=== PATIENT | female | born 1995 | race Caucasian/White ===

== ENCOUNTER 2019-05-26 18:53 | Emergency (ER) | payer OTHER, SELFPAY ==
[2019-05-26 19:05] VITALS: BP 150/79; PULSE 124; RESP 16; TEMP 37.2; O2SAT 100
--- NOTE | 2019-05-26 19:58 | ED.GENADULT ---
HPI - General Adult General Chief complaint: Upper Respiratory Infection Stated complaint: cough ear pain Time Seen by Provider: 05/26/19 19:58 Source: patient and RN notes reviewed Mode of arrival: ambulatory Limitations: no limitations History of Present Illness HPI narrative: 24-year-old female with complaints of upper respiratory infection symptoms, sore throat, body aches, fatigue, bilateral ear pain, tactile fever, congestion, and cough for 2 days. Tylenol (last at 2100 on 05/25/2019) and NyQuil with little relief. History of Asthma. Dry cough with intermittent productive cough (brown phlegm). Rhinorrhea and nasal congestion. Exacerbating factors consists of smoke exposure. Tactile fevers with intermittent chills and sweats. Sore throat, bilaterally. Hurts to swallow. No drooling, neck or throat swelling. No nausea, vomiting, and abdominal pain. Denies chest pain, dyspnea, coughing up blood, difficulty swallowing, jaw pain, dental pain, facial pain, foreign body sensation, and rash. Remains active. Arline denies being , LMP 1 month ago and has Moment.Usplanon in place. Some parts of this dictation were generated by voice recognition software and may contain typographical and/or grammatical inaccuracies. Related Data Home Medications Medication Instructions Recorded Confirmed albuterol sulfate 05/26/19 05/26/19 ranitidine HCl 05/26/19 venlafaxine 05/26/19 Allergies Allergy/AdvReac Type Severity Reaction Status Date / Time No Known Allergies Allergy Unknown Verified 05/26/19 19:51 Review of Systems Review of Systems: Narrative: CONSTITUTIONAL: Complains of fatigue, tactile fever, chills, sweats. EYES: Denies visual changes, redness, discharge. ENT: Complains of rhinorrhea, congestion, sore throat, bilateral otalgia. CARDIOVASCULAR: Denies chest pain, palpitations, edema. RESPIRATORY: Denies dyspnea, wheezing. Complains of dry cough, intermittent productive cough. GASTROINTESTINAL: Denies abdominal pain, nausea, vomiting, diarrhea. GENITOURINARY: Denies dysuria, hematuria, abnormal discharge. SKIN: Denies rash or itching. MUSCULOSKELETAL: Denies acute back pain, joint pain. Complains of myalgia. NEUROLOGIC: Denies numbness or focal weakness. PSYCHIATRIC: Denies anxiety or depression. All systems reviewed & are unremarkable except as noted in HPI and below. PMFSH Past Medical History Medical History Asthma Depression GERD (gastroesophageal reflux disease) Surgical History Surgical History No significant past surgical history Family History Family History Other Depression Diabetes mellitus Family history of coronary artery disease Social History Social History (Updated 05/26/19 @ 20:08 by SAURABH Cheatham) Smoking status: Never smoker Alcohol intake: current Alcohol use details: Occasionally Substance use: never Living arrangements: alone Occupation/Education: occupation Gender identity (if verbalized by the patient): Female Comments At time of signature, agree with nurse past medical, surgical, social, and family history. There is no relevant family history pertinent to the presenting complaint. Exam Narrative: Exam Narrative: GENERAL: This is a well-nourished, well-developed patient, in no apparent distress. Speaks in full sentences and ambulates with steady gait without dyspnea. HEAD: normocephalic, atraumatic. EYES: PERRL. Sclera clear/white. Vision is grossly intact. EARS: External ears normal, auditory canals clear and without drainage, TMs normal without perforation. Hearing grossly intact. NOSE: External nose normal with no obvious nasal discharge, nares with moderate redness and enlarged turbinates, clear rhinorrhea. THROAT: Mucous membranes moist, posterior pharynx with
[2019-05-26 20:25] VITALS: BP 110/82; PULSE 107; RESP 22
== END 2019-05-26 20:30 | disposition home or self-care (01) ==
PROVIDERS: Emergency Provider Nurse Practitioner Family
DX: B34.9 Viral infection, unspecified (principal); K21.9 Gastro-esophageal reflux disease without esophagitis
CPT/HCPCS: 87081; 87804; 87880; 99213; G0463

== ENCOUNTER 2019-06-03 18:17 | Emergency (ER) | payer OTHER, SELFPAY ==
[2019-06-03 18:24] VITALS: BP 138/88; PULSE 96; RESP 20; TEMP 37; O2SAT 100
--- NOTE | 2019-06-03 18:47 | ED.URI ---
HPI - URI/Sore Throat General Chief Complaint: Upper Respiratory Infection Stated Complaint: cough fever Time Seen by Provider: 06/03/19 18:36 Source: patient and RN notes reviewed Mode of arrival: ambulatory Limitations: no limitations History of Present Illness HPI Narrative: Patient presents today with a 10-day history of cough. She was seen at urgent care on 05/26/2019. At that time she was diagnosed with a viral illness and given prescriptions for prednisone, Claritin, Tessalon Perles. States her cough has significantly improved, but is still persistent. She also reports some persistent fatigue with sweats and chills. Denies shortness of breath. She has been taking the prescribed medications as well as using nebulizer treatments at home with relief. MD elicited complaint: cough Related Data Home Medications Medication Instructions Recorded Confirmed albuterol sulfate 2.5 mg INHALATION Q4H PRN 06/03/19 06/03/19 Allergies Allergy/AdvReac Type Severity Reaction Status Date / Time No Known Allergies Allergy Unknown Verified 06/03/19 18:45 Review of Systems Review of Systems: Narrative: CONSTITUTIONAL: Denies body aches, fever. +Chills, sweats, fatigue EYES: Denies visual changes, redness, or discharge. ENT: Denies rhinorrhea, congestion, sore throat, or otalgia. CARDIOVASCULAR: Denies chest pain, palpitations, or edema. RESPIRATORY: Denies dyspnea.+Cough GASTROINTESTINAL: Denies abdominal pain, nausea, vomiting, or diarrhea. GENITOURINARY: Denies dysuria or hematuria. SKIN: Denies rash, itching, or wounds. MUSCULOSKELETAL: Denies back pain, joint pain, or myalgia. NEUROLOGIC: Denies headache, numbness, tingling, or weakness. PSYCH: Denies depression or anxiety. [facility] Social History Social History (Updated 05/26/19 @ 20:08 by SAURABH Cheatham) Smoking status: Never smoker Alcohol intake: current Substance use: never Gender identity (if verbalized by the patient): Female Comments At time of signature, I have reviewed and agree with nursing past medical, surgical, social and family history unless otherwise noted. Please see nursing chart for further information. There is no relevant family history pertinent to the presenting complaint Exam Narrative: Exam Narrative: GENERAL: Well-appearing, well-nourished, and in no acute distress. HEAD: Normocephalic, atraumatic. EYES: EOMI. No redness or drainage. Conjunctivae normal. ENT: Mucous membranes pink and moist. Nares clear. No rhinorrhea. TMs normal bilaterally. Throat normal. Uvula midline. NECK: Normal AROM. Supple. No lymphadenopathy. CHEST: No respiratory distress. Clear to auscultation. HEART: Regular rate and rhythm. No murmur appreciated. Normal peripheral pulses. EXTREMITIES: Normal range of motion. No edema. SKIN: Warm, dry, no rash. NEURO: No focal deficits. Alert and oriented x3. Gait steady. PSYCH: Normal affect. No signs of depression or anxiety. Course Vital Signs Vital signs: Vital Signs Temperature 98.6 F 06/03/19 18:24 Pulse Rate 96 06/03/19 18:24 Respiratory Rate 20 06/03/19 18:24 Blood Pressure 138/88 06/03/19 18:24 Pulse Oximetry 100 06/03/19 18:24 Temperature 98.6 F 06/03/19 18:24 Pulse Rate 96 06/03/19 18:24 Respiratory Rate 20 06/03/19 18:24 Blood Pressure 138/88 06/03/19 18:24 Pulse Oximetry 100 06/03/19 18:24 Reviewed. Pt has been instructed to follow up with her PCP regarding her elevated blood pressure today. MDM - URI/Sore Throat Differential Diagnosis Differential diagnosis: Likely upper respiratory infection, sinusitis and bronchitis Medical Records Attestation: I reviewed the patient's medical records. Critical Care Time Critical Care Time Critical Care Time: No Discharge Plan Discharge Clinical Impression: Bronchitis Patient Disposition: Home, Self-Care Condition: Stable Instructions: Acute Bronchitis (ED) Additional Instructions: Ple
== END 2019-06-03 18:55 | disposition home or self-care (01) ==
PROVIDERS: Emergency Provider Nurse Practitioner
DX: J40 Bronchitis, not specified as acute or chronic (principal); K21.9 Gastro-esophageal reflux disease without esophagitis; F32.9 Major depressive disorder, single episode, unspecified; J45.909 Unspecified asthma, uncomplicated
CPT/HCPCS: 99213; G0463

== ENCOUNTER 2021-09-20 09:46 | Emergency (ER) | payer OTHER, SELFPAY ==
--- NOTE | 2021-09-20 09:50 | ED.URI ---
HPI - URI/Sore Throat General Chief Complaint: Upper Respiratory Infection Stated Complaint: sore throat Time Seen by Provider: 09/20/21 09:50 Source: patient and RN notes reviewed History of Present Illness HPI Narrative: Patient is a 26-year-old female who presents the urgent care with complaints of sore throat for the last 2 to 3 days. Patient denies any fever, nausea, vomiting or known ill exposure. Patient has not taken anything [id number] for her symptoms. No other acute complaints. No acute distress noted. Patient aware of the plan of care. Some parts of this dictation were generated by voice recognition software and may contain typographical and/or grammatical inaccuracies. Related Data Home Medications Medication Instructions Recorded Confirmed albuterol sulfate 2.5 mg/3 mL 2.5 mg inhalation Q4H PRN sob 06/03/19 06/03/19 (0.083 %) solution for nebulization ranitidine HCl 150 mg tablet 150 mg PO BID 06/03/19 06/03/19 venlafaxine 37.5 mg 37.5 mg PO DAILY 06/03/19 06/03/19 capsule,extended release 24 hr Allergies Allergy/AdvReac Type Severity Reaction Status Date / Time No Known Allergies Allergy Unknown Verified 06/03/19 18:45 Review of Systems Review of Systems: CONSTITUTIONAL: Denies fever, chills, or sweats. EYES: Denies visual changes, redness, or discharge. ENT: Denies rhinorrhea, congestion, otalgia. Reports of sore throat CARDIOVASCULAR: Denies chest pain, palpitations, or edema. RESPIRATORY: Denies cough or dyspnea. GASTROINTESTINAL: Denies abdominal pain, nausea, vomiting, or diarrhea. GENITOURINARY: Denies dysuria or hematuria. SKIN: Denies rash or itching. MUSCULOSKELETAL: Denies back pain, joint pain, or myalgia. NEUROLOGIC: Denies headache, numbness, or weakness. All other systems reviewed are negative, except as documented in HPI. [facility] Past Medical History Medical History (Updated 09/20/21 @ 10:05 by SAURABH Scott) Asthma Depression GERD (gastroesophageal reflux disease) Surgical History Surgical History No significant past surgical history Family History Family History Other Depression Diabetes mellitus Family history of coronary artery disease Social History Social History (Updated 05/26/19 @ 20:08 by SAURABH Cheatham) Smoking status: Never smoker Alcohol intake: current Alcohol use details: Occasionally Substance use: never Gender identity (if verbalized by the patient): Female Comments At the time of my signature, I reviewed and agree with the nursing past medical, surgical, social, and family history. There is no relevant family history pertinent to the patient complaint. Exam Narrative: GENERAL: This is a well-nourished, well-developed patient, in no apparent distress. HEAD: normocephalic, atraumatic. EYES: PERRL. Sclera clear/white. Vision is grossly intact. EARS: External ears normal, auditory canals clear and without drainage, TMs normal without perforation. Hearing grossly intact. NOSE: External nose normal with no obvious nasal discharge, nares without redness, clear rhinorrhea. THROAT: Mucous membranes moist, posterior pharynx clear. Moderate postnasal drainage NECK: Neck supple CARDIOVASCULAR: Regular rate and rhythm without murmurs, gallops, or rubs. RESPIRATORY: Clear to auscultation. Breath sounds equal bilaterally. No wheezes, rales, or rhonchi. SKIN: warm, intact with no suspicious lesions or rash, good texture and turgor. NEURO: awake, alert, and oriented to person, place and time. There were no obvious focal neurologic abnormalities. EXTREMITIES: No clubbing, cyanosis, or edema. Course Course Level of Care: Express Care Visit Vital Signs Vital signs: Vital Signs Temperature 98.4 F 09/20/21 09:52 Pulse Rate 79 09/20/21 09:52 Respiratory Rate 20 09/20/21 09:52 Blood Pressure
[2021-09-20 09:52] VITALS: BP 146/88; PULSE 79; RESP 20; TEMP 36.9; O2SAT 100
== END 2021-09-20 10:08 | disposition home or self-care (01) ==
PROVIDERS: Emergency Provider Nurse Practitioner Family; PCP Nurse Practitioner Family
DX: J02.9 Acute pharyngitis, unspecified (principal); J45.909 Unspecified asthma, uncomplicated; K21.9 Gastro-esophageal reflux disease without esophagitis; F32.A Depression, unspecified
CPT/HCPCS: 87081; 99213; G0463

== ENCOUNTER 2022-11-13 09:18 | Emergency (ER) | payer OTHER, SELFPAY ==
[2022-11-13 09:26] VITALS: BP 138/80; PULSE 71; RESP 20; TEMP 36.7; O2SAT 100
--- NOTE | 2022-11-13 09:39 | ED.ANIMALBIT ---
HPI - Animal Bite General Chief Complaint: Animal Bite Stated Complaint: Dog bite on right hand pointer finger History of Present Illness HPI narrative: right index finger dog bite patient states was her dog and non provoked attach no concerns for rabies no dog bite form completed. Patient is26 weeks with no related problems normal movement and no vaginal discharge. Related Data Home Medications Medication Instructions Recorded Confirmed albuterol sulfate 2.5 mg/3 mL 2.5 mg inhalation Q4H PRN sob 06/03/19 11/02/22 (0.083 %) solution for nebulization albuterol sulfate 90 mcg/actuation 2 puff inhalation Q4H PRN cough, 11/02/22 11/02/22 aerosol inhaler (ProAir HFA) wheezing, and shortness of breath vits no.126-ferrous fum 1 tablet PO DAILY 11/02/22 11/02/22 28 mg iron-folic acid 800 mcg tablet (Classic ) Allergies Allergy/AdvReac Type Severity Reaction Status Date / Time No Known Allergies Allergy Unknown Verified 11/02/22 13:22 Review of Systems Review of Systems: CONSTITUTIONAL: Denies fever, chills, or sweats. EYES: Denies visual changes, redness, or discharge. ENT: Denies rhinorrhea, congestion, sore throat, or otalgia. CARDIOVASCULAR: Denies chest pain, palpitations, or edema. RESPIRATORY: Denies cough or dyspnea. GASTROINTESTINAL: Denies abdominal pain, nausea, vomiting, or diarrhea. GENITOURINARY: Denies dysuria or hematuria. SKIN: Denies rash or itching. MUSCULOSKELETAL: Denies back pain, joint pain, or myalgia. NEUROLOGIC: Denies headache, numbness, or weakness. PSYCHIATRIC: Denies anxiety or depression. [facility] Past Medical History Medical History (Updated 11/13/22 @ 09:44 by SAURABH Myers) Asthma Depression GERD (gastroesophageal reflux disease) Surgical History Surgical History No significant past surgical history Family History Family History Other Depression Diabetes mellitus Family history of coronary artery disease Social History Social History (Updated 05/26/19 @ 20:08 by Tatonya M. Mendoza, JTAC) Smoking status: Never smoker Alcohol intake: current Alcohol use details: Occasionally Substance use: never Living arrangements: alone Occupation/Education: occupation Gender identity (if verbalized by the patient): Female Spiritual care concerns: No Comments At time of signature, agree with nursing past medical, surgical, social and family history. There is no relevant family history pertinent to the presenting complaint Exam Narrative: GENERAL: Well-appearing, well-nourished, and in no acute distress. HEAD: Normocephalic, atraumatic. EYES: PERRLA and EOMI. ENT: Nares clear, no rhinorrhea or epistaxis. Mucous membranes moist. NECK: Supple. CHEST: Clear to auscultation. No respiratory distress. HEART: Regular rate and rhythm. No murmur heard. Normal peripheral pulses. ABDOMEN: Soft, nontender, nondistended, normal active bowel sounds. EXTREMITIES: Normal range of motion. No edema. SKIN: Warm, dry, no rash. Puncture wound to right index finger slightly swollen and tender to touch no drainage NEURO: No focal deficits. Alert and oriented x3. Natalia Coma Scale Eye Opening: Spontaneous 4 Natalia Coma Scale Motor: Obeys Commands 6 Emerita Coma Scale Verbal: Oriented 5 Natalia Coma Scale Total 15 Course Course Level of Care: Express Care Visit Vital Signs Vital signs: Vital Signs Temperature 36.7 C 11/13/22 09:26 Pulse Rate 71 11/13/22 09:26 Respiratory Rate 20 11/13/22 09:26 Blood Pressure 138/80 11/13/22 09:26 Pulse Oximetry 100 11/13/22 09:26 Oxygen Delivery Room Air 11/13/22 09:26 Temperature 36.7 C 11/13/22 09:26 Pulse Rate 71 11/13/22 09:26 Respiratory Rate 20 11/13/22 09:26 Blood Pressure 138/80 11/13/22 09:26 Pulse Oximetry 100
== END 2022-11-13 09:49 | disposition home or self-care (01) ==
PROVIDERS: Emergency Provider Nurse Practitioner Family; PCP Nurse Practitioner Family
DX: O9A.212 Injury, poisoning and certain other consequences of external causes complicating pregnancy, second trimester (principal); S61.230A Puncture wound without foreign body of right index finger without damage to nail, initial encounter; Z3A.26 26 weeks gestation of pregnancy; W54.0XXA Bitten by dog, initial encounter; J45.909 Unspecified asthma, uncomplicated; K21.9 Gastro-esophageal reflux disease without esophagitis
CPT/HCPCS: 99213; G0463

== ENCOUNTER 2022-11-25 04:51 | Inpatient (IN) | payer OTHER, SELFPAY ==
[2022-11-25] VITALS (202 sets, daily range): BP systolic 88–168; BP diastolic 49–119; PULSE 50–167; RESP 15–20; TEMP 36.1–37.5; O2SAT 96–100; BMI 41.3
[2022-11-25] MEDS: LACTATED RINGERS 1,000 ML 125 ML IV CONT ×3 (05:42→15:49)
--- NOTE | 2022-11-25 05:55 | LDADM ---
This patient, Arline Rodriguez, was admitted to Labor/Delivery/Recovery 102 on 11/25/22 at 04:51. Plans for labor, pain management and were discussed with patient. Patient/family oriented to hospital policies and general routines including ID bracelet, bed and alarms, visiting hours, pain management, procedures, bathroom and other care routines, personal items, smoking policy, room service/diet and guest tray routines, security routines, and visiting hours. Patient/Family are encouraged to report perceived risks to care and to ask questions if they do not understand what they are told or what they should do. See OBIX for further documentation.
[2022-11-25 06:07] LABS: Basophils Percent Auto 0.2 % (0.2-1.2); Hematocrit 38.2 % (37.0-47.0); Hemoglobin 13.2 g/dL (12.0-15.0); Immature Granulocyte Absolute 0.04 K/mm3 (0.00-0.031); Immature Granulocyte Percent A 0.4 % (0-0.5); Lymphocytes Absolute Auto 1.43 K/mm3 (0.9-3.2); Lymphocytes Percent Auto 12.7 % (18.3-44.2); Mean Corpuscular HGB Conc 34.6 g/dl (32-36); Mean Corpuscular Hemoglobin 31.2 pg (26-34); Mean Corpuscular Volume 90.3 fl (80-100); Mean Platelet Volume 9.6 fl (7.4-10.4); Monocytes Absolute Auto 0.8 K/mm3 (0.1-0.6); Monocytes Percent Auto 6.7 % (2.6-8.5); Platelet Count Result 237 k/mm3 (150-375); Red Blood Count 4.23 M/mm3 (4.2-5.4); White Blood Count 11.3 K/mm3 (4.5-10.0)
--- NOTE | 2022-11-25 06:59 | PM.IMHP ---
H&P: HPI History of Present Illness Date/Time: 11/25/22 06:59 Chief Complaint: Induction of labor at term Narrative: this is a 27-year-old whose last menstrual period is unknown, EDC is 12/01/2022, cut firm by 11 week ultrasound presents at 39 weeks gestation for induction of labor. She is negative for group B strep in her cervix is advanced cervical dilatation at 4cm. [facility] Past Medical History Medical History (Updated 11/25/22 @ 07:02 by Jean Marie Lee MD) Asthma Depression GERD (gastroesophageal reflux disease) Surgical History Surgical History No significant past surgical history Family History Family History Other Depression Diabetes mellitus Family history of coronary artery disease Social History Social History Smoking status: Former smoker Tobacco type: cigarettes Second hand tobacco smoke exposure: No Alcohol intake: current Alcohol use details: Occasionally Substance use: never Lack of Transportation: No Lack of Food: Never True Current Housing: I Have Housing Concerned About Future Housing: No Difficulty Paying Gas/Electric Bills: No Difficulty Paying for Meds: No Currently Unemployed: No Education: High School Diploma/GED Difficulty w/ Childcare or Family Care: No Living arrangements: alone Occupation/Education: occupation Gender identity (if verbalized by the patient): Female Spiritual care concerns: No Meds Home Medications and Allergies Home Medications Medication Instructions Recorded Confirmed Type albuterol sulfate 2.5 mg/3 mL 2.5 mg inhalation Q4H PRN sob 06/03/19 11/02/22 History (0.083 %) solution for nebulization albuterol sulfate 90 mcg/actuation 2 puff inhalation Q4H PRN cough, 11/02/22 11/02/22 History aerosol inhaler (ProAir HFA) wheezing, and shortness of breath vits no.126-ferrous fum 1 tablet PO DAILY 11/02/22 11/02/22 History 28 mg iron-folic acid 800 mcg tablet (Classic ) amoxicillin 875 mg-potassium 1 tablet PO Q12H 5 days #10 tabs 11/13/22 Rx clavulanate 125 mg tablet Allergies Allergy/AdvReac Type Severity Reaction Status Date / Time No Known Allergies Allergy Unknown Verified 11/02/22 13:22 Vital Signs Vital Signs - 24 hr 11/25/22 05:54 11/25/22 06:01 11/25/22 06:17 Pulse Rate 70 69 63 Blood Pressure 141/86 H 137/80 129/78 Pulse Oximetry Oxygen Delivery 11/25/22 06:31 11/25/22 06:45 11/25/22 06:47 Pulse Rate 75 118 H Blood Pressure 145/101 H 139/69 Pulse Oximetry 99 Oxygen Delivery 11/25/22 06:48 11/25/22 06:53 11/25/22 06:58 Pulse Rate Blood Pressure Pulse Oximetry 97 97 97 Oxygen Delivery 11/25/22 05:50 Pulse Rate Blood Pressure Pulse Oximetry Oxygen Delivery Room Air Exam Const: General: cooperative, healthy appearing and comfortable Nutritional Appearance: average body habitus Orientation/consciousness: oriented to person, oriented to place and oriented to time HENMT: Head: normal to inspection Resp: Effort & Inspection: normal respiratory effort Cardio: Rate: regular rate Rhythm: regular rhythm Heart sounds: S1 normal heart sound present and S2 normal heart sound present GI: Inspection: normal to inspection ( Gravid soft uterus) : External Female Exam: normal external appearance Speculum Exam - Vagina: normal appearance of the vagina Speculum Exam - Cervix: normal appearance of the cervix ( /. AROM clear. FHTs reassuring. Internals placed.) H&P: Results Labs Labs: Short CBC 11/25/22 Range/Units 05:26 WBC 11.3 H (4.5-10.0) K/mm3 Hgb 13.2 (12.0-15.0) g/dL Hct 38.2 (37.0-47.0) % Plt Count 237 (150-375) k/mm3 Assessment and Plan Assessment and plan (1) Term : Code(
[2022-11-25] MEDS: OXYTOCIN 30 UNITS/NS 500 ML 30 UNITS/500 ML BAG IV CONT (07:00)
[2022-11-25] MEDS: SODIUM CHLORIDE 0.9% IV 300 ML 600 ML I-UTERINE (10:09)
--- NOTE | 2022-11-25 10:14 | WPDANESEPPF ---
Anes - Initial Pre Proc Eval Date/Time: 11/25/22 10:14 Surgeon: Jean Marie Lee MD Pre Op Diagnosis: Induction of Labor Patient Data Age: 27 Gender: F Height: Weight: Last Vital Signs Temp 36.1 C L 11/25/22 09:00 Pulse 66 11/25/22 10:02 BP 123/80 11/25/22 10:02 Pulse Ox 100 11/25/22 10:11 O2 Del Method Room Air 11/25/22 05:50 Allergies Allergy/AdvReac Type Severity Reaction Status Date / Time No Known Allergies Allergy Unknown Verified 11/02/22 13:22 Home Medications Medication Instructions Recorded Confirmed Type albuterol sulfate 2.5 mg/3 mL 2.5 mg inhalation Q4H PRN sob 06/03/19 11/02/22 History (0.083 %) solution for nebulization albuterol sulfate 90 mcg/actuation 2 puff inhalation Q4H PRN cough, 11/02/22 11/02/22 History aerosol inhaler (ProAir HFA) wheezing, and shortness of breath vits no.126-ferrous fum 1 tablet PO DAILY 11/02/22 11/02/22 History 28 mg iron-folic acid 800 mcg tablet (Classic ) amoxicillin 875 mg-potassium 1 tablet PO Q12H 5 days #10 tabs 11/13/22 Rx clavulanate 125 mg tablet Laboratory Tests 11/25/22 05:26 WBC 11.3 H K/mm3 (4.5-10.0) RBC 4.23 M/mm3 (4.2-5.4) Hgb 13.2 g/dL (12.0-15.0) Hct 38.2 % (37.0-47.0) MCV 90.3 fl (80-100) MCH 31.2 pg (26-34) MCHC 34.6 g/dl (32-36) RDW 13.0 % (11.5-14.5) Plt Count 237 k/mm3 (150-375) MPV 9.6 fl (7.4-10.4) Immature Gran % (Auto) 0.4 % (0-0.5) Neut % (Auto) 80.0 H % (45.5-73.1) Lymph % (Auto) 12.7 L % (18.3-44.2) Person % (Auto) 6.7 % (2.6-8.5) Eos % (Auto) 0.0 % (0-4.4) Baso % (Auto) 0.2 % (0.2-1.2) Lymph # (Auto) 1.43 K/mm3 (0.9-3.2) Person # (Auto) 0.8 H K/mm3 (0.1-0.6) Eos # (Auto) 0.0 K/mm3 (0-0.3) Baso # (Auto) 0.0 K/mm3 (0.0-0.1) Abs Immat Gran (auto) 0.04 H K/mm3 (0.00-0.031) Absolute Neuts (auto) 9.0 H K/mm3 (1.3-6.7) Absolute Nucleated RBC 0.0 K/mm3 (0.0-0.012) Nucleated RBC % 0.0 % (0.0-0.2) RPR Pending Blood Type O Positive Antibody Screen Negative Patient hx anesthesia problems: none Family hx anesthesia problems: none Results Review: All pre-operative results and documents have been reviewed as part of the pre-operative evaluation. COUNTS INCLUDE 234 BEDS AT THE [facility] Past Medical History Medical History Asthma Depression GERD (gastroesophageal reflux disease) Surgical History Surgical History No significant past surgical history Family History Family History Other Depression Diabetes mellitus Family history of coronary artery disease Social History Social History Smoking status: Former smoker Tobacco type: cigarettes Second hand tobacco smoke exposure: No Alcohol intake: current Alcohol use details: Occasionally Substance use: never Lack of Transportation: No Lack of Food: Never True Current Housing: I Have Housing Concerned About Future Housing: No Difficulty Paying Gas/Electric Bills: No Difficulty Paying for Meds: No Currently Unemployed: No Education: High School Diploma/GED Difficulty w/ Childcare or Family Care: No Living arrangements: alone Occupation/Education: occupation Gender identity (if verbalized by the patient): Female Spiritual care concerns: No Anes - Eval Final PreProcedure Day of Procedure 11/25/22 10:14 Patient weight: morbidly obese Neurological: alert and oriented ASA classification: III Emergent: no Anesthetic plan: proceed Anesthesia type and monitoring: regional epidural and standard monitoring Results Review: All pre-operative results and documents have been reviewed as part of the pre-operative evaluatio
[2022-11-25 11:03] LABS: Rapid Plasma Reagin Non-Reactive (NonReactive)
--- NOTE | 2022-11-25 12:43 | PM.OBPNLAB ---
Pain Control Date/time seen: 11/25/22 12:43 Pain control: tolerating well and epidural Pelvic Exam Dilation (cm): 6 Amniotic membrane status: Leaking
--- NOTE | 2022-11-25 14:21 | PC.NURSE ---
1030 - Introductions were made and mother shared how she would like to feed her baby with . Encouraged mother to place [id number] until the first feeding if infant is stable and to wait on the weight to help stabilize, reduce stress, and improve latching by allowing time to explore parent's chest using instincts. Education was shared on how to protect her milk supply with latching infant and/or using hand expression to remove milk if doesn't latch in the first hour, then finger feed colostrum to the infant to preserve breast focus. Demonstration given on how to hand express using tool. Resources provided with educational trifold for bonding and feeding infant. Parents voiced understanding of information and to call if there is a request for assistance.
--- NOTE | 2022-11-25 14:57 | PM.OBPNLAB ---
Pain Control Date/time seen: 11/25/22 14:57 Pain control: tolerating well and epidural Pelvic Exam Dilation (cm): 9 Effacement (%): 100 station: -1 Amniotic membrane status: Leaking Comments: multiple decels noted norecovered , offered section. risks/benefits given
[2022-11-25] MEDS: LACTATED RINGERS 1,000 ML 999 ML IV CONT (15:05)
[2022-11-25] MEDS: ceFAZolin 2 GM/D5W 50 ML 2 GM/50 ML BAG IVPB (15:05)
[2022-11-25] MEDS: AZITHROMYCIN 500 MG/NS 250 ML 500 MG/250 ML BAG 250 MG IVPB (15:15)
--- NOTE | 2022-11-25 15:39 | P.OP_ITS ---
Procedure Note - Detailed Date of Procedure 11/25/22 Pre-op Diagnosis Induction of Labor Post-op Diagnosis Same Procedure Performed Primary low-transverse section Surgeon Jean Marie Lee MD Anesthesia Epidural Indications this 27-year-old female a get to 9cm with intolerance to labor Findings female 5lb 2oz with nuchal cord. Normal-appearing ovaries and tubes Description of Procedure patient was brought in for induction of labor she can not about 9cm had recurrent deep variable decelerations with some late this happened throughout the day but this point was slow to return. For low-transverse section. After obtaining informed consent she was wheeled back prepped draped in normal sterile fashion and placed in the supine position. Under excellent epidural anesthesia the end was then Pfannenstiel fashion progressed through layers to the fascia. Fascia was incised in upward outward fashion bilaterally. Underlying muscles sharply dissected. Parietal peritoneum ligament clamped admission segment and carried superiorly and inferiorly the dome of the bladder. Bladder blade placed. Bladder flap formed. Bladder blade returned. A low- transverse incision made the head delivered nares position. Anterior posterior shoulder delivered spontaneously after leaving nuchal cord. Cord clamped x2 and cut and passed off table. Placenta delivered intact manually. Uterus delivered and wrapped in moist towel. After assuring no membranes or debris remained uterus, uterus closed with continuous running locking 0 Vicryl lateral edge to lateral edge. This followed by 2nd running imbricating running locking 0 Vicryl from lateral edge edge. Hemostasis was assured. Ovaries and tubes appeared within normal limits and uterus returned the abdomen. The uterine incision inspected 1 last time hemostatic. Laps removed and accounted for the fascia closed with continuous running 0 Vicryl from lateral edge to midline. Areas subcutaneously and skin closed with 4 Monocryl glue. All sponge, needle, instrument counts were correct. There were no immediate complications Estimated Blood Loss 395 Drains No Packing No Pathology None sent Complications No immediate complications Condition Stable Disposition Floor
--- NOTE | 2022-11-25 15:42 | PM.DS ---
DS: Admitting Diagnosis Discharge Date 11/27/2022 Admitting Diagnosis term DS: Discharge Diagnosis Discharge Diagnosis (1) Term : Code(s): Z34.90 - Encounter for supervision of normal , unspecified, unspecified trimester Status: Acute DS: Summary Hospital Course Reason for hospitalization: patient was admitted for induction of labor on 11/25/2022. Hospital Course: Patient underwent a difficult 1st stage of labor got to 9cm. The patent baby did not tolerate contractions at that point and she underwent low-transverse section. Hospital course unremarkable there after. She remained afebrile. She was up, voiding without difficulty, eating regular diet, ambulating, generally without complaints. Time Spent with Patient Time attestation: Total time spent providing and/or coordinating discharge services: Exam Const: General: cooperative, healthy appearing and comfortable Nutritional Appearance: average body habitus Orientation/consciousness: oriented to person, oriented to place and oriented to time HENMT: Head: normal to inspection Resp: Effort & Inspection: normal respiratory effort Cardio: Rate: regular rate Rhythm: regular rhythm Heart sounds: S1 normal heart sound present and S2 normal heart sound present GI: Inspection: normal to inspection ( Fundus firm below umbilicus) and incision ( wound clean dry and intact) DS: Data Data Completed and Pending Labs on day of discharge: Labs from last 24 hours 11/25/22 05:26 WBC 11.3 H RBC 4.23 Hgb 13.2 Hct 38.2 MCV 90.3 MCH 31.2 MCHC 34.6 RDW 13.0 Plt Count 237 MPV 9.6 Immature Gran % (Auto) 0.4 Neut % (Auto) 80.0 H Lymph % (Auto) 12.7 L Charlton % (Auto) 6.7 Eos % (Auto) 0.0 Baso % (Auto) 0.2 Lymph # (Auto) 1.43 [place]ton # (Auto) 0.8 H Eos # (Auto) 0.0 Baso # (Auto) 0.0 Abs Immat Gran (auto) 0.04 H Absolute Neuts (auto) 9.0 H Absolute Nucleated RBC 0.0 Nucleated RBC % 0.0 RPR Non-reactive Blood Type O Positive Antibody Screen Negative Discharge Plan Discharge Attending physician on discharge: Jean Marie Lockhart Discharging Clinician: Jean Marie Lockhart Patient Disposition: Home, Self-Care Activity: may shower and pelvic rest Diet: heart healthy Wound Care Instructions: follow printed instructions Patient Instructions: Antibiotic Form Stand Alone Forms: General Discharge Information Follow-up/Referrals: Jean Marie Lockhart MD [Physician] - Discharge Medications: New hydrocodone-acetaminophen 5-325 mg tablet 1 tablet PO Q4H PRN (Reason: pain) Qty: 20 0RF Continued albuterol sulfate 2.5 mg /3 mL (0.083 %) Solution For Nebulization 2.5 mg INHALATION Q4H PRN (Reason: sob) amoxicillin-pot clavulanate 875-125 mg tablet 1 tablet PO Q12H 5 Days Qty: 10 0RF Classic 28 mg iron- 800 mcg Tablet 1 tablet PO DAILY albuterol sulfate [ProAir HFA] 90 mcg/actuation HFA aerosol inhaler 2 puff INHALATION Q4H PRN (Reason: cough, wheezing, and shortness of breath) Date of admission: 11/25/22 04:51 Primary Care Provider: Hamilton,Yaritza Espinal Admitting Provider: Jean Marie Lockhart Attending physician on admission: Jean Marie Lockhart Condition: Stable
--- NOTE | 2022-11-25 16:42 | PC.NURSE ---
heart tones obtained externally in OR. FHT 90 at 1513. Paged for MD overhead in OR. FHT 125 at 1514 before removing monitor and prepping patient for section. Unable to remove FSE at this time. aware.
[2022-11-25] MEDS: OXYTOCIN 30 UNITS/NS 500 ML 30 UNITS/500 ML BAG 125 UNITS IV CONT (17:45)
--- NOTE | 2022-11-25 19:00 | PC.NURSE ---
Patient transferred to post room #283 per stretcher from labor and delivery. Support person present. Oriented to unit, room, information board, rooming in, admission packet and security measures. Patient verbalizes understanding.
[2022-11-25] MEDS: HYDROcodone/acetaminophen (*CRX) 5-325 MG TABLET 1 TAB PO (22:22)
[2022-11-25] MEDS: IBUPROFEN 600 MG TABLET PO (22:22)
[2022-11-25] MEDS: DEXTROSE 5%/0.45% SOD CHL 1,000 ML 125 ML IV CONT (22:22)
[2022-11-26 05:10] VITALS: BP 128/78; PULSE 88; RESP 18; TEMP 35.8
[2022-11-26 05:29] LABS: Basophils Percent Auto 0.3 % (0.2-1.2); Hematocrit 35.4 % (37.0-47.0); Hemoglobin 11.7 g/dL (12.0-15.0); Immature Granulocyte Absolute 0.06 K/mm3 (0.00-0.031); Immature Granulocyte Percent A 0.4 % (0-0.5); Mean Corpuscular HGB Conc 33.1 g/dl (32-36); Mean Corpuscular Hemoglobin 30.9 pg (26-34); Mean Corpuscular Volume 93.4 fl (80-100); Mean Platelet Volume 9.4 fl (7.4-10.4); Monocytes Percent Auto 6.3 % (2.6-8.5); Neutrophils Absolute Auto 12.8 K/mm3 (1.3-6.7); Platelet Count Result 188 k/mm3 (150-375); Red Blood Count 3.79 M/mm3 (4.2-5.4); Red Cell Distribution Width 13.2 % (11.5-14.5); White Blood Count 15.1 K/mm3 (4.5-10.0)
--- NOTE | 2022-11-26 06:36 | PM.OBPNVD ---
OB - PN: Subj Subjective Date/time seen: 11/26/22 06:36 Patient comments: no complaints and pain well controlled baby status: doing well OB - PN: Obj Data Labs 11/26/22 05:10 Labs: Laboratory Results - last 24 hr 11/25/22 11/26/22 05:26 05:10 WBC 15.1 H RBC 3.79 L Hgb 11.7 L Hct 35.4 L MCV 93.4 MCH 30.9 MCHC 33.1 RDW 13.2 Plt Count 188 MPV 9.4 Immature Gran % (Auto) 0.4 Neut % (Auto) 85.0 H Lymph % (Auto) 8.0 L [place] % (Auto) 6.3 Eos % (Auto) 0.0 Baso % (Auto) 0.3 Lymph # (Auto) 1.20 [place] # (Auto) 1.0 H Eos # (Auto) 0.0 Baso # (Auto) 0.0 Abs Immat Gran (auto) 0.06 H Absolute Neuts (auto) 12.8 H Absolute Nucleated RBC 0.0 Nucleated RBC % 0.0 RPR Non-reactive OB - PN A/P Plan day: 1 Plan: routine care Time Spent With Patient Time: Total time spent is greater than 50% in coordination of care (as documented) at patient's floor/unit and/or counseling patient: Time with patient: less than 15 minutes Exam Const: General: cooperative, healthy appearing and comfortable Nutritional Appearance: average body habitus Orientation/consciousness: oriented to person, oriented to place and oriented to time Resp: Effort & Inspection: normal respiratory effort Cardio: Rate: regular rate Rhythm: regular rhythm Heart sounds: S1 normal heart sound present and S2 normal heart sound present GI: Inspection: normal to inspection and incision (Wound clean dry and intact)
[2022-11-26 07:50] VITALS: BP 132/77; PULSE 89; RESP 18; TEMP 36.3; O2SAT 98
[2022-11-26] MEDS: DOCUSATE SODIUM 100 MG CAPSULE PO ×2 (09:28→17:25)
[2022-11-26] MEDS: IBUPROFEN 600 MG TABLET PO ×3 (09:28→23:25)
[2022-11-26] MEDS: MULTIVIT/MIN/PREN/FOL AC/IRON TABLET 1 TAB PO (09:28)
[2022-11-26] MEDS: HYDROcodone/acetaminophen (*CRX) 5-325 MG TABLET 1 TAB PO ×3 (09:29→23:25)
--- NOTE | 2022-11-26 14:40 | WPDANLDPN2 ---
Anes-Prog Note L&D Date/Time: 11/26/22 14:40 Comfortable throughout: labor and section Neuraxial method: epidural Epidural/Spinal procedure site: tender Neuro status: Neuro function grossly intact. Cardiovascular status: normal Respiratory status: normal Airway patency: baseline Mental status: baseline Post-Op hydration status: normal Vital Signs: Last Vital Signs Temp 97.3 F L 11/26/22 07:50 Pulse 89 11/26/22 07:50 Resp 18 11/26/22 07:50 BP 132/77 11/26/22 07:50 Pulse Ox 98 11/26/22 07:50 O2 Del Method Room Air 11/26/22 07:50 Pain score (VAS): 2 I/O: Intake & Output 11/25/22 11/26/22 11/26/22 23:59 07:59 15:59 Intake Total 500 500 Output Total 200 1300 Balance 300 -800 Post-procedural complaints: none Patient feedback: Patient satisfied with anesthetic care.
[2022-11-26 19:15] VITALS: BP 113/76; PULSE 63; RESP 18; TEMP 36
--- NOTE | 2022-11-27 06:41 | PM.OBPNVD ---
OB - PN: Subj Subjective Date/time seen: 11/27/22 06:41 Patient comments: no complaints and pain well controlled baby status: doing well and nursing well OB - PN: Obj Data Labs 11/26/22 05:10 OB - PN A/P Plan day: 2 Plan: routine care, discharge home and follow up 6 weeks (4) Time Spent With Patient Time: Total time spent is greater than 50% in coordination of care (as documented) at patient's floor/unit and/or counseling patient: Time with patient: less than 15 minutes Exam Const: General: cooperative, healthy appearing and comfortable Nutritional Appearance: average body habitus Orientation/consciousness: oriented to person, oriented to place and oriented to time Chest: Chest palpation & inspection: normal inspection of the chest Resp: Effort & Inspection: normal respiratory effort Cardio: Rate: regular rate Rhythm: regular rhythm Heart sounds: S1 normal heart sound present and S2 normal heart sound present GI: Inspection: normal to inspection and incision (cdi)
[2022-11-27 08:15] VITALS: BP 151/94; PULSE 95; RESP 16; TEMP 37.1; O2SAT 99
[2022-11-27] MEDS: MULTIVIT/MIN/PREN/FOL AC/IRON TABLET 1 TAB PO (08:22)
[2022-11-27] MEDS: DOCUSATE SODIUM 100 MG CAPSULE PO (08:22)
[2022-11-27] MEDS: IBUPROFEN 600 MG TABLET PO (08:23)
[2022-11-27] MEDS: HYDROcodone/acetaminophen (*CRX) 5-325 MG TABLET 1 TAB PO (08:24)
[2022-11-28 08:17] VITALS: BP 139/87; PULSE 103; RESP 18; TEMP 37.7; O2SAT 99
== END 2022-11-27 13:00 | disposition home or self-care (01) | DRG 540 ==
LOC: ANHLDR 15:44 → ANHOB2 19:13
PROVIDERS: Admitting Provider Obstetrics & Gynecology; PCP Nurse Practitioner Family; Visit Provider Obstetrics & Gynecology
PROC: 10D00Z1 Extraction of Products of Conception, Low, Open Approach (ICD-10-PCS; CPT 59514; principal; 2022-11-25 15:00)
DX: O76 Abnormality in fetal heart rate and rhythm complicating labor and delivery (principal); F32.A Depression, unspecified; O69.81X0 Labor and delivery complicated by cord around neck, without compression, not applicable or unspecified; Z3A.39 39 weeks gestation of pregnancy; Z37.0 Single live birth; O99.344 Other mental disorders complicating childbirth; O99.52 Diseases of the respiratory system complicating childbirth; J45.909 Unspecified asthma, uncomplicated; Z87.891 Personal history of nicotine dependence
CPT/HCPCS: 36415; 85025; 86592; 86850; 86900; 86901; A9270; J0456; J0690; J2274; J2590; J2795; J7030; J7120

== ENCOUNTER 2023-02-19 09:13 | Emergency (ER) | payer OTHER, SELFPAY ==
[2023-02-19 09:20] VITALS: BP 130/76; PULSE 103; RESP 20; TEMP 36.7; O2SAT 97
--- NOTE | 2023-02-19 10:16 | ED.GENADULT ---
HPI - General Adult General Chief complaint: Upper Respiratory Infection Stated complaint: cough/throat Source: patient Mode of arrival: ambulatory Limitations: no limitations History of Present Illness HPI narrative: Patient presents for evaluation of sore throat for the last 2 days. No fever, chills, nausea, vomiting, diarrhea, shortness of breath. She has an occasional cough. She tried taking Mucinex for symptoms with improvement thereafter. She has her daughter here being evaluated for a fever. Patient does not smoke. Related Data Home Medications Medication Instructions Recorded Confirmed vits no.[id number]-ferrous fum 1 tablet PO DAILY 11/02/22 02/19/23 28 mg iron-folic acid 800 mcg tablet (Classic ) norgestrel 0.3 mg-ethinyl 1 tablet PO DIRECTED 02/19/23 02/19/23 estradiol 30 mcg tablet ([place]sel[place] (28)) sertraline 50 mg tablet 50 mg PO DIRECTED 02/19/23 02/19/23 Allergies Allergy/AdvReac Type Severity Reaction Status Date / Time No Known Allergies Allergy Unknown Verified 02/19/23 09:26 Review of Systems Review of Systems: CONSTITUTIONAL: Denies fever, chills, or sweats. EYES: Denies visual changes, redness, or discharge. ENT: Reports sore throat. Denies rhinorrhea, congestion, or otalgia. CARDIOVASCULAR: Denies chest pain, palpitations, or edema. RESPIRATORY: Reports occasional cough. Denies dyspnea. GASTROINTESTINAL: Denies abdominal pain, nausea, vomiting, or diarrhea. GENITOURINARY: Denies dysuria or hematuria. SKIN: Denies rash or itching. MUSCULOSKELETAL: Denies back pain, joint pain, or myalgia. NEUROLOGIC: Denies headache, numbness, dizziness, or weakness. PSYCHIATRIC: Denies anxiety or depression. [facility] Past Medical History Medical History Asthma Depression GERD (gastroesophageal reflux disease) Surgical History Surgical History No significant past surgical history Family History Family History Other Depression Diabetes mellitus Family history of coronary artery disease Social History Social History Smoking status: Former smoker Tobacco type: cigarettes Second hand tobacco smoke exposure: No Alcohol intake: current Alcohol use details: Occasionally Substance use: never Lack of Transportation: No Lack of Food: Never True Current Housing: I Have Housing Concerned About Future Housing: No Difficulty Paying Gas/Electric Bills: No Difficulty Paying for Meds: No Currently Unemployed: No Education: High School Diploma/GED Difficulty w/ Childcare or Family Care: No Living arrangements: alone Occupation/Education: occupation Gender identity (if verbalized by the patient): Female Spiritual care concerns: No Exam Narrative: GENERAL: Well-appearing, well-nourished, and in no acute distress. HEAD: Normocephalic, atraumatic. EYES: PERRLA and EOMI. ENT: Nares clear, no rhinorrhea or epistaxis. Mucous membranes moist. Oropharynx without tonsillar hypertrophy exudate or other lesions. Bilateral TMs pearly gallardo nonbulging NECK: Supple. No adenopathy or masses. No carotid bruits or JVD CHEST: Clear to auscultation. No respiratory distress. No wheezes rales or rhonchi HEART: Regular rate and rhythm. No murmur heard. Normal peripheral pulses. ABDOMEN: Soft, nontender, nondistended, normal active bowel sounds. EXTREMITIES: Normal range of motion. No edema. SKIN: Warm, dry, no rash. NEURO: No focal deficits. Alert and oriented x3. PSYCH: Normal mood and affect. Course Course Emergency Course: This is a 27-year-old female who presented for evaluation of sick symptoms. Strep negative. Exam is consistent with acute viral syndrome. Follow-up with primary provider.
== END 2023-02-19 09:49 | disposition home or self-care (01) ==
PROVIDERS: Emergency Provider Nurse Practitioner; PCP Nurse Practitioner Family
DX: J02.9 Acute pharyngitis, unspecified (principal); Z87.891 Personal history of nicotine dependence; J45.909 Unspecified asthma, uncomplicated; K21.9 Gastro-esophageal reflux disease without esophagitis; F32.A Depression, unspecified
CPT/HCPCS: 87081; 87880; 99213; G0463